=== PATIENT | female | born 1975 | race Caucasian/White ===

== ENCOUNTER 2024-03-01 20:05 | Emergency (ER) | payer OTHER ==
[~2024-03-01] VITALS: Ht 157.5 cm; Wt 90.7 kg
[~2024-03-01 20:05] MED LIST: AMOX500C25 PO; BIRTH CONTROL PILL PO; PROM473S5 PO
[2024-03-01 20:58] VITALS: BP 121/78; PULSE 102; RESP 16; TEMP 97.4; O2SAT 100
[2024-03-01] MEDS ORDERED: IBUP-2213 PO (22:37)
[2024-03-01] MEDS ORDERED: PHEN-1877 PO (22:37)
[2024-03-01] MEDS ORDERED: CIPR500T4 PO (22:37)
== END 2024-03-01 22:46 | disposition home or self-care (01) ==
LOC: MED 20:05
DX: R30.0 Dysuria (principal); R03.0 Elevated blood-pressure reading, without diagnosis of hypertension; Z79.1 Long term (current) use of non-steroidal anti-inflammatories (NSAID); Z79.899 Other long term (current) drug therapy
CPT/HCPCS: 81002; 81025; 99283

== ENCOUNTER 2024-09-01 15:49 | Emergency (ER) | payer OTHER ==
[~2024-09-01] VITALS: Ht 157.5 cm; Wt 89.6 kg
[~2024-09-01 15:49] MED LIST changes: +CIPR500T4 PO; +IBUP-2213 PO; +PHEN-1877 PO
[2024-09-01 16:12] VITALS: BP 129/86; PULSE 92; RESP 16; TEMP 98; O2SAT 96
[2024-09-01] MEDS ORDERED: IBUP-2213 PO (18:56)
[2024-09-01] MEDS: KETOROLAC 30 MG/ML VIAL IM ONE (19:28)
== END 2024-09-01 19:38 | disposition home or self-care (01) ==
LOC: MED 15:49
DX: M25.531 Pain in right wrist (principal); R03.0 Elevated blood-pressure reading, without diagnosis of hypertension; Z98.890 Other specified postprocedural states; Z85.3 Personal history of malignant neoplasm of breast; Z79.899 Other long term (current) drug therapy
CPT/HCPCS: 29125; 96372; 99283; J1885